=== PATIENT | female | born 1985 | race African-American/Black ===

== ENCOUNTER 2020-02-14 09:08 | Emergency (ER) | payer MEDICAID, OTHER ==
[~2020-02-14] VITALS: Ht 160 cm; Wt 54.4 kg
[2020-02-14] MEDS ORDERED: ACETAMINOPHEN 500 MG TAB PO ONE (10:15)
[2020-02-14 11:00] VITALS: BP 116/75
== END 2020-02-14 11:14 | disposition home or self-care (01) ==
LOC: ER 09:08
DX: S29.012A Strain of muscle and tendon of back wall of thorax, initial encounter (principal); S86.912A Strain of unspecified muscle(s) and tendon(s) at lower leg level, left leg, initial encounter; Z32.01 Encounter for pregnancy test, result positive; V43.62XA Car passenger injured in collision with other type car in traffic accident, initial encounter; Y93.89 Activity, other specified; Y92.410 Unspecified street and highway as the place of occurrence of the external cause; Y99.8 Other external cause status
CPT/HCPCS: 81025